=== PATIENT | male | born 1995 | race Caucasian/White ===

== ENCOUNTER 2018-09-13 11:07 | Emergency (ER) | payer MEDICAID ==
[~2018-09-13] VITALS: Ht 170.2 cm; Wt 70.5 kg
[2018-09-13 13:46] VITALS: BP 132/68
== END 2018-09-13 13:49 | disposition home or self-care (01) ==
LOC: EMS 11:11
DX: S00.33XA Contusion of nose, initial encounter (principal); S90.511A Abrasion, right ankle, initial encounter; R60.0 Localized edema; M79.651 Pain in right thigh; V03.10XA Pedestrian on foot injured in collision with car, pick-up truck or van in traffic accident, initial encounter; Y93.89 Activity, other specified; Y92.89 Other specified places as the place of occurrence of the external cause; Y99.8 Other external cause status

== ENCOUNTER 2020-05-31 00:34 | Emergency (ER) | payer MEDICAID, OTHER | END 2020-05-31 00:55 | disposition left against medical advice (07) | LOC: EMS 00:40 | DX: F10.10 Alcohol abuse, uncomplicated (principal); Z53.21 Procedure and treatment not carried out due to patient leaving prior to being seen by health care provider ==